=== PATIENT | male | born 1980 | race Two or more races ===

== ENCOUNTER 2024-12-24 08:29 | Emergency (ER) | payer BC, SELFPAY ==
--- NOTE | 2024-12-24 08:34 | EKG_ITS ---
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
[2024-12-24 09:00] VITALS: BP 151/94; PULSE 79; RESP 18; TEMP 37.1; O2SAT 96; BMI 45.7
--- NOTE | 2024-12-24 09:02 | XR_ITS ---
Examination: PA lateral chest 2 views TECHNIQUE: Upright PA lateral chest 2 views Exam date and time: December 24, 2024 0918 hours INDICATIONS: Chest pain today. FINDINGS: Normal heart size The lungs are clear. The osseous structures are intact IMPRESSION: No active disease
--- NOTE | 2024-12-24 09:02 | PD.EDRME ---
Rapid Medical Screening Exam RME Arrival date/time: 12/24/24 08:29 44-year-old male with no significant medical problems presents for concerns of tachycardia. Patient reports that his watch informed him that his heart rate was in the 130s and he became dizzy at that time Chief Complaint: Dizziness Time Seen by Provider: 12/24/24 08:38 Vital signs: Vital Signs Temperature 98.7 F 12/24/24 09:00 Pulse Rate 79 12/24/24 09:00 Respiratory Rate 18 12/24/24 09:00 Blood Pressure 151/94 H 12/24/24 09:00 Pulse Oximetry (%) 96 12/24/24 09:00 Oxygen Delivery Method Room Air 12/24/24 09:00
[2024-12-24 09:34] LABS: Basophils % (Auto) 1 % (0-2.5); Eosinophils # (Auto) 0.1 Thou/mm3 (0.0-0.5); Eosinophils % (Auto) 2 % (0-10); Hematocrit 44.5 % (41.0-53.0); Hemoglobin 15.4 g/dL (13.5-16.0); Immature Granulocytes % (Auto) 1 % (0-0); Immature Granulocytes Auto 0.02 Thou/mm3 (0.00-0.00); Lymphocytes # (Auto) 1.9 Thou/mm3 (1.0-4.8); Lymphocytes % (Auto) 46 % (10-50); Mean Corpuscular HGB Conc 34.6 g/dl (31.0-37.0); Mean Corpuscular Volume 87 fL (80-100); Monocytes # (Auto) 0.3 Thou/mm3 (0.0-0.8); Monocytes % (Auto) 7 % (0-12); Neutrophils # (Auto) 1.8 Thou/mm3 (1.8-7.7); Neutrophils % (Auto) 45 % (37-80); Nucleated Red Blood Cell % 0 /100 WBC (0); Platelet Count 213 Thou/mm3 (140-440); RDW Standard Deviation 45.2 fL (35.1-43.9); Red Blood Count 5.13 Miln/mm3 (4.50-5.90)
[2024-12-24 09:51] LABS: Partial Thromboplastin Time 27.6 Seconds (22.0-36.0); Prothrombin Time 10.8 Seconds (9.0-12.2)
[2024-12-24 09:54] LABS: B-Type Natriuretic Peptide < 20 pg/mL (0-100)
[2024-12-24 10:00] LABS: Anion Gap 8 (7-16); BUN/Creatinine Ratio 21 Ratio (12-20); Blood Urea Nitrogen 15 mg/dL (9-23); Carbon Dioxide 26.8 mMol/L (20.0-31.0); Chloride 105 mMol/L (98-107); Creatinine (Component) 0.7 mg/dL (0.6-1.3); Estimated Creatinine Clearance 150.3 mL/min (>60); Glucose 118 mg/dL (74-106); Osmolality,Calculated 281 (275-295); Potassium 3.9 mMol/L (3.4-5.1); Sodium 140 mMol/L (136-145); eGFR > 60 See Note
[2024-12-24 10:01] LABS: Alanine Aminotransferase 107 U/L (10-49); Albumin, Serum 4.5 gm/dL (3.5-5.0); Albumin/Globulin Ratio 1.6 (1.2-2.2); Alkaline Phosphatase 64 U/L (46-116); Aspartate Amino Transferase 55 U/L (0-34); Bilirubin,Total 0.4 mg/dL (0.3-1.2); Calcium 9.3 mg/dL (8.3-10.6); Calcium (Corrected) 9.3 mg/dL (8.5-10.1); Free T4 (Free Thyroxine) 1.04 ng/dL (0.89-1.76); Globulin 2.8 gm/dL (2.3-3.5); Magnesium 1.9 mg/dL (1.6-2.6); Thyroid Stimulating Hormone 1.14 uIU/mL (0.55-4.78); Total Protein 7.3 gm/dL (5.7-8.2); Troponin I < 0.002 ng/mL (0.0-0.045)
[2024-12-24 10:03] LABS: D-Dimer < 250 ng/mL (<600)
--- NOTE | 2024-12-24 12:09 | PD.EDADULT ---
ED General RME/HPI General Chief complaint: Dizziness Stated complaint: DIZZY, BP 160/109, HR 133 Time Seen by Provider: 12/24/24 08:38 Arrival date/time: 12/24/24 08:29 CC: Tachycardia and HPI single episode of tachycardia this morning as high as 133 no prior history of symptoms denies anxiety stress load. 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 At the time of the exam at 1210, the patient has no symptoms heart rate is normal and he denies any chest pain shortness of breath or difficulty breathing. RME / HPI RME / HPI narrative: 12/24/24 08:29 44-year-old male with no significant medical problems presents for concerns of tachycardia. Patient reports that his watch informed him that his heart rate was in the 130s and he became dizzy at that time Related Data Home Medications ?Medication ?Instructions ?Recorded ?Confirmed fluconazole 200 mg tablet 400 mg PO QDAY 12/06/21 12/06/21 Previous Rx's ?Medication ?Instructions ?Recorded pantoprazole 40 mg granules 40 mg PO QDAY #30 ea 04/16/21 delayed-release for susp in packet (Protonix) Allergies Allergy/AdvReac Type Severity Reaction Status Date / Time codeine Allergy Severe Anaphylaxis Verified 12/24/24 08:32 Review of Systems Review of Systems Narrative Review of Systems: GEN: No fever, no chills, no weight loss EYES: No discharge, no visual changes, no pain HEENT: No ear pain, no congestion, no sore throat PULM: No shortness of breath, no cough, no congestion CV: No chest pain, no dyspnea on exertion, no palpitations GI: No nausea, no vomiting, no diarrhea, no pain, no constipation : No frequency, no urgency, no dysuria MUSC/SKEL: No joint pain, no back pain SKIN: No rash PSYCH: No hallucinations, no depression HEME/LYMPH: No easy bleeding or bruising tendencies NEURO: No weakness, no headache Past Medical History Past Medical History NEUROLOGIC: Negative Cerebrovascular Accident or Alzheimer's Disease CARDIAC: Negative Cardiac Disorders, Myocardial Infarction, Congestive Heart Failure or Hypertension RESPIRATORY: Negative Chronic Obstructive Pulmonary Disease (COPD) GASTROINTESTINAL: Negative Gastrointestinal Disorders, Liver Cancer or Pancreatic Cancer GENITOURINARY: Negative Genitourinary Disorders or Renal Disease MUSCULOSKELETAL: Negative Bone Cancer or Osteoporosis ENT: Negative Glaucoma ENDOCRINE: Negative Endocrine Disorders, Diabetes Mellitus Type 1 or Diabetes Mellitus Type 2 HEMATOLOGIC: Negative Blood Disorders OTHER HISTORY: Negative Down Syndrome, Developmental Delay or Organ Transplant Family History FAMILY HISTORY: Positive Family Cardiac Disorders (FATERNAL- HTN, VALVE REPLACEMENT, CAD, MULTIPLE STENTS / BROTHER- CAD, HTN) Surgical History SURGICAL: Negative Organ Transplant Social History SMOKING STATUS: Never smoker ED Exam Narrative Physical exam: [General: Obese not in any acute distress Head normocephalic HEENT: Within acceptable limits Neck is supple nontender Chest equal chest rise nontender to palpation Respiratory: Clear to auscultation no wheezes crackles or rubs CV: Rate rhythm is regular no murmurs rubs or clicks Abdomen is distended secondary to body habitus soft nontender no masses positive bowel sounds all 4 quadrants Back: No CVA tenderness no spinous process tenderness from cervical spine thoracic and lumbar spine Skin: Intact no petechiae rash induration ulceration or crepitus Extremities: Moving all extremity against resistance cap refill less than 2 seconds neurosensory intact Neuro: Awake alert oriented x3 Glascow coma 15 no focal deficits] Course Quality Measures none Orders Category Date Time Status EKG (ED ONLY) *Do not use* NOW Care 12/24/24 08:34 Completed EKG (ED Only) Stat Exams 12/24/24 08:34 Draft XR chest 2V Stat Exams 12/24/24 09:02 Completed B-Type Natriuretic Peptide Stat Lab 12/24/24 09:07 Completed CBC Stat Lab 12/24/24 09:07 Completed Comprehensive Metabolic Panel Stat Lab 12/24/24 09:07 Completed D-Dimer Stat Lab 12/24/24 09:07 Completed Free T4 (Free Thyroxine) Stat Lab 12/24/24 09:07 Completed Magnesium Stat Lab 12/24/24 09:07 Completed Partial Thromboplastin Time Stat Lab 12/24/24 09:07 Completed Prothrombin Time with INR Stat Lab 12/24/24 09:07 Completed TSH [Thyroid Stimulating Hormone] Stat Lab 12/24/24 09:07 Completed Troponin I Stat Lab 12/24/24 09:07 Completed Vital Signs Vital signs: Vital Signs Temperature 98.7 F 12/24/24 09:00 Pulse Rate 79 12/24/24 09:00 Respiratory Rate 18 12/24/24 09:00 Blood Pressure 151/94 H 12/24/24 09:00 Pulse Oximetry (%) 96 12/24/24 09:00 Oxygen Delivery Method Room Air 12/24/24 09:00 [facility] Patient data External records reviewed:: [facility] previous records Clinical information provided by:: patient Social determinants that could affect healthcare access:: none Patient has the following chronic illnesses:: Obesity How is presenting disease/condition affected by chronic disease/condition?: uneffected by Evaluation data The following diagnostics were reviewed and interpreted by me:: lab results, radiology exam(s) and EKG tracing(s) Lab and/or radiology exams considered but not ordered:: EKG performed at 0 857 shows a ventricular rate of 77 VT interval 155 QRS of 119 QTc of 4 1 forts is normal sinus rhythm. CBC shows no acute leukocytosis anemia thrombocytopenia CMP shows no significant electrolyte imbalances renal impairment transaminitis or T. bili elevation Coags within acceptable limits Troponin is negative It BNP is negative TSH and 3 T4 is within acceptable limits Chest x-ray is negative for any acute finding. Interpretation Summary: Single isolated incident of tachycardia. Medications Medications considered but not ordered:: None Medication administrations:: None Consultations Consultation(s) initiated? (list below): No Diagnosis Differential Diagnosis ED Complaint MDM: ACS RI A-fib Most likely diagnosis given after review of the tests above:: Tachycardia Admission Indicated Admission indicated?: not indicated Explain why admission is indicated or not indicated:: Stable for discharge Admission Request Was there a request for admission?: No Disposition Plan Disposition Plan: Discharge Discharge Attestation Discharge Attestation: The patient and all family members were given an opportunity to ask questions and understood the discharge instructions. Discharge instructions specifically effects, indications for sooner follow up or return to the emergency department, and the expected course of current diagnosis. Patient condition: Stable Medical Decision Making Differential Diagnosis Differential Diagnosis: ACS RI A-fib Lab Data 12/24/24 09:07 12/24/24 09:07 Labs: Lab Results 12/24/24 Range/Units 09:07 WBC 4.0 (3.8-10.6) Thou/mm3 RBC 5.13 (4.50-5.90) Miln/mm3 Hgb 15.4 (13.5-16.0) g/dL Hct 44.5 (41.0-53.0) % MCV 87 (80-100) fL MCH 30.0 (25.0-35.0) pg MCHC 34.6 (31.0-37.0) g/dl RDW Std Deviation 45.2 H (35.1-43.9) fL Plt Count 213 (140-440) Thou/mm3 Neut % (Auto) 45 (37-80) % Lymph % (Auto) 46 (10-50) % [place] % (Auto) 7 (0-12) % Eos % (Auto) 2 (0-10) % Baso % (Auto) 1 (0-2.5) % Neut # (Auto) 1.8 (1.8-7.7) Thou/mm3 Lymph # (Auto) 1.9 (1.0-4.8) Thou/mm3 [place] # (Auto) 0.3 (0.0-0.8) Thou/mm3 Eos # (Auto) 0.1 (0.0-0.5) Thou/mm3 Baso # (Auto) 0.0 (0.0-0.2) Thou/mm3 Immature Gran # (Auto) 0.02 H (0.00-0.00) Thou/mm3 Absolute Nucleated RBC 0.00 (0.00-0.00) Thou/mm3 Immature Gran % 1 H (0-0) % Nucleated RBC % 0 (0) /100 WBC PT 10.8 (9.0-12.2) Seconds INR 1.0 (0.9-1.3) APTT 27.6 (22.0-36.0) Seconds D-Dimer < 250 (<600) ng/mL Sodium 140 (136-145) mMol/L Potassium 3.9 (3.4-5.1) mMol/L Chloride 105 (98-107) mMol/L Carbon Dioxide 26.8 (20.0-31.0) mMol/L Anion Gap 8 (7-16) BUN 15 (9-23) mg/dL Creatinine 0.7 (0.6-1.3) mg/dL Estim Creat Clear Calc 150.3 (>60) mL/min eGFR > 60 (60 - ) See Note BUN/Creatinine Ratio 21 H (12-20) Ratio Glucose 118 H (74-106) mg/dL Calculated Osmolality 281 (275-295) Calcium 9.3 (8.3-10.6) mg/dL Corrected Calcium 9.3 (8.5-10.1) mg/dL Magnesium 1.9 (1.6-2.6) mg/dL Total Bilirubin 0.4 (0.3-1.2) mg/dL AST 55 H (0-34) U/L ALT 107 H (10-49) U/L Alkaline Phosphatase 64 (46-116) U/L Troponin I < 0.002 (0.0-0.045) ng/mL B-Natriuretic Peptide < 20 (0-100) pg/mL Total Protein 7.3 (5.7-8.2) gm/dL Albumin 4.5 (3.5-5.0) gm/dL Globulin 2.8 (2.3-3.5) gm/dL Albumin/Globulin Ratio 1.6 (1.2-2.2) TSH 1.14 (0.55-4.78) uIU/mL Free T4 1.04 (0.89-1.76) ng/dL Discharge Plan Plan Patient Disposition: HOME (Self Care) Patient condition on transfer: Stable Prescriptions/Referrals Prescriptions/Med Rec: No Action fluconazole 200 mg tablet 400 mg PO QDAY pantoprazole [Protonix] [address] for susp in packet 40 mg PO QDAY Qty: 30 0RF Referrals: Gorge Kimball MD [Primary Care Provider] - In 1 week Problem List Clinical Impression: Tachycardia Patient/Caregiver Discharge Instructions Education Materials: Understanding Tachycardia Additional Instructions: Return to the emergency room immediately if there is a accelerated rhythm that is sustained and irregular otherwise follow-up with your primary care provider consider an outpatient cardiac workup. Print Language: Mauritanian Stand Alone Forms: Yuliya Award Info., Work/School Release, Patient Portal Info Letter PA/CARLENE Supervising Physician PA/NON DESTRUCTIVE EVALUATION MANAGER Supervising Physician: Pavan Givens ENP
== END 2024-12-24 15:32 | disposition home or self-care (01) ==
PROVIDERS: Nurse Practitioner Primary Care; Emergency Provider Emergency Medicine; PCP Family Medicine
DX: R00.0 Tachycardia, unspecified (principal)
CPT/HCPCS: 36415; 71046; 80053; 83735; 83880; 84439; 84443; 84484; 85025; 85379; 85610; 85730; 93005; 99283

== ENCOUNTER → 2025-01-23 | Outpatient (BNVA) | payer BC, SELFPAY | END | disposition home or self-care (01) | PROVIDERS: PCP Family Medicine; Referring Provider Family Medicine; Visit Provider Urology | DX: N40.1 Benign prostatic hyperplasia with lower urinary tract symptoms (principal); N13.8 Other obstructive and reflux uropathy; N43.3 Hydrocele, unspecified; R31.29 Other microscopic hematuria; R80.9 Proteinuria, unspecified | CPT/HCPCS: 81003; 99212; G0463 ==

== ENCOUNTER → 2025-02-17 | Outpatient (CLI) | payer BC, SELFPAY ==
[2025-02-17 12:09] LABS: Prostate Specific Antigen 0.36 ng/mL (0-4.00)
== END | disposition home or self-care (01) ==
PROVIDERS: PCP Family Medicine; Referring Provider Urology; Visit Provider Urology
DX: N40.1 Benign prostatic hyperplasia with lower urinary tract symptoms (principal); R31.9 Hematuria, unspecified
CPT/HCPCS: 36415; 84153; 87086

== ENCOUNTER → 2025-02-17 | Outpatient (BNVA) | payer BC, SELFPAY | END | disposition home or self-care (01) | PROVIDERS: PCP Family Medicine; Referring Provider Family Medicine; Visit Provider Urology | DX: N43.3 Hydrocele, unspecified (principal); R31.29 Other microscopic hematuria; Z80.42 Family history of malignant neoplasm of prostate | CPT/HCPCS: 55000; 81003; J3490; A9270 ==